=== PATIENT | male | born 1955 | race Caucasian/White ===

== ENCOUNTER 2017-07-09 16:16 | Emergency (ER) | payer OTHER ==
[~2017-07-09] VITALS: Ht 180.3 cm; Wt 90.7 kg
== END 2017-07-09 18:32 | disposition home or self-care (01) ==
LOC: ED 16:16
DX: R14.0 Abdominal distension (gaseous) (principal); F10.10 Alcohol abuse, uncomplicated; Z87.891 Personal history of nicotine dependence
CPT/HCPCS: 71046; 76705; 80053; 81001; 83690; 85025; 85610; 85730; 99284

== ENCOUNTER 2017-09-09 13:32 | Emergency (ER) | payer OTHER ==
[~2017-09-09] VITALS: Ht 180.3 cm; Wt 81.7 kg
[2017-09-09] MEDS ORDERED: CLEOCIN HCL300 MG PO (17:01)
== END 2017-09-09 17:09 | disposition home or self-care (01) ==
LOC: ED 13:32
DX: L03.116 Cellulitis of left lower limb (principal); L03.115 Cellulitis of right lower limb; R14.0 Abdominal distension (gaseous); R22.2 Localized swelling, mass and lump, trunk
CPT/HCPCS: 36415; 71046; 76700; 80053; 81001; 83880; 85025; 85379; 86704; 86706; 86709; 86803; 87340; 93970; 99284

== ENCOUNTER 2018-04-22 06:15 | Day surgery (SDC) | payer OTHER ==
[~2018-04-22] VITALS: Ht 180.3 cm; Wt 100.7 kg
[~2018-04-22 06:15] MED LIST: CLEOCIN HCL300 MG PO
[2018-04-22] MEDS ORDERED: K-TAB ER20 MEQ PO (06:39)
[2018-04-22] MEDS ORDERED: FUROSEMIDE20 MG PO (06:39)
--- NOTE | 2018-04-22 08:09 | NUR ---
04/22/18 0809 Fifi Patrick 0802-PATIENT ARRIVED TO PACU AWAKE DROWSY REPORTING STOMACH PAIN ENCOURAGED TO PASS GAS. ABDOMEN ROUND AND DISTENDED LAYING LEFT LATERAL. 4L NC 02 SAT 94% 0809-PATIENT AWAKE PASSING GAS REPORTS STOMACH FEELING BETTER. WEANED TO 2L NC 96%
--- NOTE | 2018-04-23 08:00 | OR ---
[facility] [address], [place] [address] Signed DATE OF OPERATION: 04/22/2018 SURGEON: Gibran Andres MD PREOPERATIVE DIAGNOSES: 1. Chronic diarrhea and constipation. 2. Diverticulosis. 3. Hemorrhoids. 4. Generalized abdominal pain and bloating. POSTOPERATIVE DIAGNOSES: 1. A 4 mm rectal polyps x5 at 8-10 cm. 2. Minimal to moderate sigmoid diverticulosis. 3. Moderate internal hemorrhoids. 4. Enlarged indurated prostate. PROCEDURE PERFORMED: Colonoscopy with hot biopsy. ESTIMATED BLOOD LOSS: None. INDICATIONS: Joesph is a 62-year-old gentleman asked to see me for his initial colonoscopy. He drinks alcohol on a daily basis and apparently quit smoking about 6 months ago. He said he has had chronic diarrhea for years, but also has some constipation. He had a CT scan of the abdomen and pelvis performed, and apparently no significant findings other than a tiny left inguinal hernia and umbilical hernia containing fat. Both hernias were asymptomatic. He may have a small hiatal hernia. Fortunately, there is no cirrhosis of the liver. No ascites. No splenomegaly. No portal hypertension. However, they did see some diverticulosis. In addition, he has had some generalized abdominal pain and bloating, and that is causing him some worry. Consequently, he was asked to see me for a colonoscopy. In the office, I gave Joesph a booklet on colonoscopy. We looked at that together in detail. He understands the nature of the test along with the risks including, but not limited to gas bloating, crampy abdominal pain, bleeding, perforation, requiring surgery, and missed diagnosis. He also understands the need for IV conscious sedation given the fact that he has significant medical issues, has trouble breathing, and use of alcohol on a daily basis. We asked that an anesthesia provider help us with increased monitoring and sedation with Electronically Signed By: GIBRAN ANDRES MD 04/23/18 0800 PATIENT NAME: JOESPH SCHULZ JULIA OPERATIVE REPORT DATE OF : 51 REPORT #: [id number] PHYSICIAN: GIBRAN ANDRES MD PCP: NARCISA CAMPA MD REPORT IS CONFIDENTIAL AND NOT TO BE RELEASED WITHOUT AUTHORIZATION [facility] [address], [place] [address] Signed propofol. That proved to be a scott decision as he had to be slightly awake during the procedure. Otherwise, he desaturated rapidly. He had expressed understanding and wished to proceed. DESCRIPTION OF PROCEDURE: Joesph was taken into our endoscopy suite and placed in the left lateral decubitus position. He was maintained on IV propofol per our nurse careers counsellor. A digital rectal exam was performed and he has an enlarged indurated prostate. No dominant nodules. The adult colonoscope was introduced and we spent just a few minutes removing 5 small polyps from the mid rectum. After this, the colonoscope was slowly advanced. Unfortunately, he has a very easy scope. It passed quite nice up and around into the cecum itself. His prep was good. The scope was slowly withdrawn. We took pictures throughout for photodocumentation. He does have some diverticula in the sigmoid colon. They were minimal to moderate in size, minimal to moderate in number, and scattered about. Once in the rectum, the scope had been retroflexed and he does have some moderate internal hemorrhoid columns. After this, the gas was suctioned out and the colonoscope removed. Joesph tolerated the procedure quite well. RECOMMENDATIONS: I will see Joesph back in my office the next 7-10 days. I suspect these will be hyperplastic polyps. Gibran Andres MD [facility]/MOD[facility] /[id number] cc: Gibran Andres MD [place], [place] Narcisa Campa MD Copies: GIBRAN ANDRES MD Electronically Signed By: GIBRAN ANDRES MD 04/23/18799 PATIENT NAME: JOESPH SCHULZ [place] OPERATIVE REPORT DATE OF : 51 REPORT #: [id number] PHYSICIAN: GIBRAN ANDRES MD PCP: NARCISA CAMPA MD REPORT IS CONFIDENTIAL AND NOT TO BE RELEASED WITHOUT AUTHORIZATION [facility] [address] [place] [address] [place], [place] [address] Signed ~ Electronically Signed By: GIBRAN ANDRES MD 04/23/18 08 PATIENT NAME: JOESHP SCHULZ OPERATIVE REPORT DATE OF : 51 REPORT #: [id number] PHYSICIAN: GIBRAN ANDRES MD PCP: NARCISA CAMPA MD REPORT IS CONFIDENTIAL AND NOT TO BE RELEASED WITHOUT AUTHORIZATION
== END 2018-04-22 08:45 | disposition home or self-care (01) ==
LOC: OPS 06:15 → DS 06:15 → OPS 06:45 → DS 09:00 → OPS 09:00
PROVIDERS: Colon & Rectal Surgery
PROC: 0DBP8ZZ Excision of Rectum, Via Natural or Artificial Opening Endoscopic (ICD-10-PCS; principal; 2018-04-22 06:45)
DX: K62.1 Rectal polyp (principal); K57.30 Diverticulosis of large intestine without perforation or abscess without bleeding; K64.8 Other hemorrhoids; N40.0 Benign prostatic hyperplasia without lower urinary tract symptoms; K52.9 Noninfective gastroenteritis and colitis, unspecified; B37.89 Other sites of candidiasis; M79.89 Other specified soft tissue disorders; K76.0 Fatty (change of) liver, not elsewhere classified; F10.10 Alcohol abuse, uncomplicated; Z87.891 Personal history of nicotine dependence; Z79.899 Other long term (current) drug therapy
CPT/HCPCS: 71045; 83880; 88305; J2704; J7120

== ENCOUNTER 2019-06-15 14:55 | Emergency (ER) | payer MEDICARE, OTHER ==
[~2019-06-15] VITALS: Ht 180.3 cm; Wt 99.8 kg
[~2019-06-15 14:55] MED LIST changes: +FUROSEMIDE20 MG PO; +K-TAB ER20 MEQ PO
--- OUTSIDE RECORDS SUMMARY | 2019-06-15 14:59 | XMS ---
PreManage Notification: ALIZA SCHULZ Security [employer] Marker Events No recent Security Events currently on file CRITERIA MET - Group Notification CARE PROVIDERS AMANDEEP BAZAN Primary Care Current PHONE: [phone] [facility] has no Care Guidelines for this patient. ECheri VISIT COUNT (12 MO.) 1 ANIRUDH Quinonez TOTAL 1 NOTE: Visits indicate total known visits. ED/UCC VISIT TRACKING (12 MO.) 06/15/2019 14:[address] [facility] [place] TYPE: Emergency COMPLAINT: - INSECT BITE INPATIENT VISIT TRACKING (12 MO.) No inpatient visits to display in this time frame [email or web address]
[2019-06-15] MEDS ORDERED: NAPROXEN500 MG PO (15:29)
[2019-06-15] MEDS ORDERED: KEFLEX500 MG PO (19:06)
[2019-06-15] MEDS ORDERED: DOXYCYCLINE HY100 MG PO (19:06)
== END 2019-06-15 20:00 | disposition left against medical advice (07) ==
LOC: ED 14:55
DX: L03.113 Cellulitis of right upper limb (principal); Z87.891 Personal history of nicotine dependence; Z79.899 Other long term (current) drug therapy
CPT/HCPCS: 73060; 73090; 73130; 80053; 83605; 85025; 93971; 99284-25; A9270; J2543